=== PATIENT | male | born 1990 | race Caucasian/White ===

== ENCOUNTER 2021-11-08 20:04 | Emergency (ER) | payer SELFPAY ==
[~2021-11-08] VITALS: Ht 182.9 cm; Wt 88.6 kg
[2021-11-08] MEDS ORDERED: ACETAMINOPHEN 500 MG TABLET PO ONE (20:30)
[2021-11-08 20:49] LABS: COVID AG,FIA SOURCE NASOPHARYNGEAL
[2021-11-08 21:07] LABS: INFLUENZA TYPE A NEGATIVE FOR TYPE A (NEGATIVE); INFLUENZA TYPE B NEGATIVE FOR TYPE B (NEGATIVE)
[2021-11-08 22:46] VITALS: BP 100/71
== END 2021-11-08 23:23 | disposition home or self-care (01) ==
LOC: EMS 20:13
DX: U07.1 COVID-19 (principal)
CPT/HCPCS: 87426; 87804; 99283; U0003

== ENCOUNTER 2022-09-19 00:48 | Emergency (ER) | payer OTHER, SELFPAY ==
[~2022-09-19] VITALS: Ht 182.9 cm; Wt 88.6 kg
[2022-09-19] MEDS ORDERED: FLUMAZENIL 0.1 MG/ML 5 ML VIAL IVP ONE (01:59)
[2022-09-19] MEDS ORDERED: FentaNYL CITRATE PF 100 MCG/2 ML VIAL IVP ONE (02:00)
[2022-09-19] MEDS ORDERED: NALOXONE HCL 1 MG/ML 2 ML SYRINGE ONE (02:00)
[2022-09-19] MEDS ORDERED: MIDAZOLAM HCL 5 MG/ML VIAL IVP ONE (02:00)
[2022-09-19 03:44] VITALS: BP 110/71
== END 2022-09-19 06:24 | disposition home or self-care (01) ==
LOC: EMS 00:49
DX: S43.004A Unspecified dislocation of right shoulder joint, initial encounter (principal); F10.20 Alcohol dependence, uncomplicated; W19.XXXA Unspecified fall, initial encounter; Y93.89 Activity, other specified; Y92.89 Other specified places as the place of occurrence of the external cause; Y99.8 Other external cause status
CPT/HCPCS: 99285; 23650; 73030; 99152; 73020; J3010; J2250; 96374; 96375; J2310; J3490

== ENCOUNTER 2025-09-02 22:38 | Emergency (ER) | payer MEDICAID ==
[~2025-09-02] VITALS: Ht 182.9 cm; Wt 90.9 kg
[2025-09-02 23:02] VITALS: BP 115/73; PULSE 63; RESP 18; TEMP 98.2; O2SAT 98
[2025-09-02] MEDS: KETOROLAC TROMETHAMINE 30 MG/ML VIAL IM ONE (23:46)
[2025-09-03] MEDS ORDERED: TRAM50TA5 PO (00:05)
== END 2025-09-03 00:56 | disposition home or self-care (01) ==
LOC: EMS 22:38
DX: S93.402A Sprain of unspecified ligament of left ankle, initial encounter (principal); M25.572 Pain in left ankle and joints of left foot; M25.472 Effusion, left ankle; X58.XXXA Exposure to other specified factors, initial encounter; Y93.39 Activity, other involving climbing, rappelling and jumping off; Y92.89 Other specified places as the place of occurrence of the external cause; Y99.8 Other external cause status
CPT/HCPCS: 99283; 73610; 96372; J1885